=== PATIENT | female | born 1965 | race Caucasian/White ===

== ENCOUNTER 2021-12-18 18:14 | Emergency (ER) | payer BC, SELFPAY ==
[2021-12-18 18:15] VITALS: BP 153/93; PULSE 73; RESP 18; TEMP 35.9; O2SAT 99; BMI 19.7
--- NOTE | 2021-12-18 18:26 | EKG12_ITS ---
Test Reason : NEURO Blood Pressure : / mmHG Vent. Rate : 067 BPM Atrial Rate : 067 BPM P-R Int : 144 ms QRS Dur : 076 ms QT Int : 434 ms P-R-T Axes : 066 056 043 degrees QTc Int : 458 ms Normal sinus rhythm Normal ECG Confirmed by HARPAL RODRIGUEZ, RUBEN ([id number]), loan expeditor JOANIE BELLA ([id number]) on 12/19/2021 11:28:59 AM Referred By: PL Confirmed By:RUBEN ROWAN MD
[2021-12-18 19:16] LABS: Absolute Lymphocyte Count 1.67 X10^3/uL (0.83-4.51); Absolute Neutrophil Count 2.3 X10^3/uL (2.0-7.7); Basophil# 0.02 X10^3/uL; Basophil% 0.4 % (0-1); Eosinophils% 2.1 % (0-5); Hematocrit 36.5 % (37-47); Hemoglobin 12.4 g/dL (12.0-15.0); Lymphocyte # 1.67 X10^3/ul (0.83-4.51); Mean Corpuscular Hgb 33.7 pg (27.0-32.0); Mean Corpuscular Volume 99.2 fL (81-99); Mean Platelet Vol. 11.6 fl (6.2-12.0); Monocyte# 0.64 X10^3/uL; Monocyte% 13.4 % (0-10); NRBC Flagged by Analyzer 0 % (0-5); Neutrophil # 2.33 X10^3/uL (2.7-7.7); Neutrophil % 48.9 % (47-70); Platelet Count 171 K/mm3 (150-450); RBC Distribution Width CV 12.5 % (11.6-14.6); RBC Distribution Width SD 45.1 fl (35.1-43.9); Red Blood Count 3.68 M/mm3 (4.2-5.4); White Blood Count 4.8 K/mm3 (4.4-11.0)
[2021-12-18 19:25] LABS: International Normalized Ratio 1.1; Prothrombin Time (Protime)PT. 13.3 SECONDS (11.7-14.9)
[2021-12-18 19:26] LABS: Partial Thromboplast Time 25.9 Seconds (24.1-36.2)
[2021-12-18 19:30] LABS: Anion Gap 6 (5-15); BUN 13 mg/dL (7-18); BUN/Creat Ratio 16.7 RATIO (10-20); Calcium,Total 9.2 mg/dL (8.5-10.1); Chloride 101 mmol/L (98-107); Creatinine, Serum 0.78 mg/dL (0.55-1.02); EST Glomerular Filtration Rate 81 mL/min (>60); Est Glom Filt Rate - Afr Amer 97 mL/min (>60); Estimated Creatinine Clearance 62.68 ml/min; Glucose 116 mg/dL (74-106); Potassium 4.1 mmol/L (3.5-5.1); Sodium Level 135 mmol/L (136-145)
[2021-12-18 19:50] VITALS: BP 140/91; PULSE 72; RESP 16; O2SAT 100
--- NOTE | 2021-12-18 19:52 | RAD_ITS ---
STUDY: X-RAY CHEST REASON FOR EXAM: Female, 56 years old. Technologist Notes LEFT SIDED FACIAL DROOP, LEFT FACE NUMBNESS, DIZZINESS, VISION CHANGES SINCE SATURDAY. Stroke TECHNIQUE: XR Chest 1 View COMPARISON: None FINDINGS: There is no demonstrated pleural abnormality. Normal size heart. Normal mediastinum and asiya. Normal visualized pulmonary arteries. There is atherosclerotic calcification of the aortic arch with tortuosity. There are diffuse degenerative changes of the visualized thoracic spine. There is degenerative osteoarthritis of the bilateral shoulders. There is no demonstrated abnormality of the visualized soft tissue structures of the upper abdomen. RAD/Chest 1 View (Portable) IMPRESSION: There are no acute findings. Electronically Signed: Mihai Arciniega MD at 20:07 EST ,
[2021-12-18 19:58] VITALS: BP 140/91; PULSE 72; RESP 13; O2SAT 100; BMI 19.7
--- NOTE | 2021-12-18 20:23 | CT_ITS ---
STUDY: CT BRAIN WITHOUT CONTRAST REASON FOR EXAM: Female, 56 years old. left side weakness TECHNIQUE: Transaxial CT imaging of the brain was performed without administration of intravenous contrast material. Individualized dose optimization techniques were used for this CT. COMPARISON: None FINDINGS: Normal calvarium. Normal soft tissues. Normal size ventricles and extra-axial spaces for the patient''s age. Normal white matter tracts of the cerebral hemispheres. Normal basal ganglia and thalami. Normal brainstem. Normal cerebellum. There is no intracranial hemorrhage. There are no findings of an acute ischemic infarction. Normal visualized paranasal sinuses. ASPECTS 10 CT/Brain/Head without Contrast IMPRESSION: There are no acute intracranial findings. Electronically Signed: Mihai Arciniega MD at 20:54 EST ,
--- NOTE | 2021-12-18 20:25 | EX.ED.DYSGE1 ---
HPI History of Present Illness Chief Complaint: Neuro S/Sx Informant: patient Narrative Narrative: Patient presents with concern for stroke. She states Saturday evening she got flashing half-king salmon shaped light in her right vision. It was bright white but sometimes had black and red components to it. She states she could easily draw it. The next day she had some tingling on the left side of her face along with some left facial droop and mild weakness along the left side. She states she intermittently still gets the flashing lights that will last for a brief period of time but is not having them now. The weakness has been getting overall better. She did have a headache the next day but that is also better. She states she had same thing that happened in about 2017 or 18. Ever since then she has gotten the flashing lights occasionally in her vision but normally does not get weakness with it. She does states she has a history of migraines but does not have them frequently. She has never associated these symptoms with her migraines. She has not seen a physician for this. She does have a family history of strokes in her mother and father at relatively young age. But she states she has kept herself healthy. She has no diabetes blood pressure or cholesterol. She has never had heart disease. She is on no medications she does have multiple allergies. PFSH PFS Medical History no medical history Allergy/AdvReac Type Severity Reaction Status Date / Time azithromycin [From Zithromax] Allergy Anaphylaxis Verified 12/18/21 18:19 Penicillins Allergy Anaphylaxis Verified 12/18/21 18:19 Sulfa (Sulfonamide Allergy Anaphylaxis Verified 12/18/21 18:19 Antibiotics) acetaminophen [From Vicodin] AdvReac Other Verified 12/18/21 18:19 hydrocodone [From Vicodin] AdvReac Other Verified 12/18/21 18:19 Family History no significant family his Surgical History no surgical history Social History Smoking Status: Never smoker ROS ROS ED Constitutional Constitutional ED: Denies chills or fever(s) Eyes Eyes: Reports other Details: See history of present illness. ENT ENT ED: Denies rhinorrhea Cardiovascular Cardiovascular: Reports palpitations; Denies chest pain Respiratory/Chest Respiratory/Chest: Denies cough, dyspnea or sputum Gastrointestinal Gastrointestinal: Denies abdominal pain, nausea or vomiting Genitourinary Genitourinary ED: Denies dysuria or hematuria Musculoskeletal Musculoskeletal: Denies arthralgias, myalgias or neck pain Integumentary Denies abscess or rash Neurologic Neurologic: Reports headache(s), paresthesias, weakness and other Details: See history of present illness Psychiatric Psychiatric: Denies anxiety or depression Endocrine Endocrinology: Denies polydipsia or polyuria Allergic/Immunologic Allergic/Immunologic ED: Denies mouth swelling or urticaria EXAM Physical Exam Const Vital Signs: 12/18/21 18:15 12/18/21 19:50 12/18/21 19:58 Temperature 96.7 F L Temperature Source Temporal Pulse Rate 73 72 72 Respiratory Rate 18 16 13 Blood Pressure 153/93 H 140/91 H 140/91 H Blood Pressure Mean 113 107 107 Pulse Ox 99 100 100 Oxygen Delivery Method Room Air Room Air Room Air 12/18/21 21:03 Temperature Temperature Source Pulse Rate 69 Respiratory Rate 19 H Blood Pressure 133/80 H Blood Pressure Mean 97 Pulse Ox 97 Oxygen Delivery Method Room Air Positive well nourished and well developed General Appearance ED: well developed and NAD; Negative for cyanotic HEENT Reports moist mucous membranes Negative for trauma or tenderness Eyes PERRL and EOMs intact bilaterally Eyes Narrative: Normal visual al. No photophobia at this time but she is also not having a headache or the scotoma. Normal range of motion. General Eye ED: Negative for pale conjunctiva or scleral icterus Neck no lymphadenopathy and supple Neck Narrative: No bruit. Chest Wall inspection of chest normal Resp normal respiratory effort and clear to auscultation bilaterally Cardio regular rate, regular rhythm and no murmurs GI normal to inspection, nondistended, normoactive bowel sounds and non-tender Palpation: soft Back/Spine no CVA tenderness General Back: CVA tenderness Extremity normal to inspection General Extremety ED: Negative for edema or tenderness General Extremity: Negative for edema Neuro oriented x3 and CN's II-XII intact bilaterally Neuro Narrative: Patient awake alert and appropriate. There is no facial droop at this time. Range of motion of the eyes are normal. No lid lag. No sign of Swan's palsy. Speech is normal. Cognition is normal. There is no weakness of upper or lower extremities. Coordination is normal. Her NIH is 0. Sensorium / Orientation: alert Psych mental status grossly normal Skin no rashes or lesions noted MDM MDM MDM Narrative Medical decision making narrative: Patient's work-up shows a normal CBC. Normal coags. Electrolytes are overall unremarkable. Troponin is negative. Chest x-ray and CT are normal. EKG shows no acute process. Patient's been having symptoms with visual scotoma occasionally followed by headache occasionally with neurologic symptoms for about 4 to 5 years. Despite this she has negative CT. The symptoms have been going on for [address] is normal. I think this represents complex migraine and not stroke. This is overall healthy person. She is very active and exercises 30 minutes or more a day. She is on a [employer] plant-based diet. She keeps herself thin. She is on no medications. Her family has history of strokes but they were not healthy. I think she is okay for discharge. We will refer her for primary physician follow-up and we discussed the possibility of neurology follow-up also. Lab Data Attestation: I reviewed the patient's lab results. Labs: Laboratory Results - last 24 hr 12/18/21 12/18/21 12/18/21 19:03 19:03 19:03 WBC 4.8 RBC 3.68 L Hgb 12.4 Hct 36.5 L MCV 99.2 H MCH 33.7 H MCHC 34.0 RDW Std Deviation 45.1 H RDW Coeff of Gertrude 12.5 Plt Count 171 MPV 11.6 Immature Gran % (Auto) 0.200 Neut % (Auto) 48.9 Lymph % (Auto) 35.0 Cascade % (Auto) 13.4 H Eos % (Auto) 2.1 Baso % (Auto) 0.4 Absolute Neuts (auto) 2.3 Absolute Lymphs (auto) 1.67 Nucleated RBC % 0 PT 13.3 INR 1.1 APTT 25.9 Sodium 135 L Potassium 4.1 Chloride 101 Carbon Dioxide 28.0 Anion Gap 6 BUN 13 Creatinine 0.78 Estim Creat Clear Calc 62.68 Est GFR (MDRD) Af Amer 97 Est GFR (MDRD) Non-Af 81 BUN/Creatinine Ratio 16.7 Glucose 116 H Calcium 9.2 Troponin I High Sens 12/18/21 19:03 WBC RBC Hgb Hct MCV MCH MCHC RDW Std Deviation RDW Coeff of Gertrude Plt Count MPV Immature Gran % (Auto) Neut % (Auto) Lymph % (Auto) Cascade % (Auto) Eos % (Auto) Baso % (Auto) Absolute Neuts (auto) Absolute Lymphs (auto) Nucleated RBC % PT INR APTT Sodium Potassium Chloride Carbon Dioxide Anion Gap BUN Creatinine Estim Creat Clear Calc Est GFR (MDRD) Af Amer Est GFR (MDRD) Non-Af BUN/Creatinine Ratio Glucose Calcium Troponin I High Sens 5 Radiography Diagnostic Testing: Clinical Impression(s) from Imaging Studies Chest X-Ray 12/18/21 19:52 IMPRESSION: There are no acute findings. Electronically Signed: Mihai Arciniega MD at 20:07 EST , Brain CT 12/18/21 20:23 IMPRESSION: There are no acute intracranial findings. Electronically Signed: Mihai Arciniega MD at 20:54 EST , EKG Initial EKG: Comments: EKG done as part of medical work-up read by me shows normal sinus rhythm with a rate of 67. No ectopy. No acute ST elevation or depression. SC interval, QRS duration and QTc normal. No prior. Discharge Plan Triage Chief Complaint: Neuro S/Sx ED Provider: Robert Jerry Dx/Rx/DC Orders Clinical Impression: Migraine, Visual field scotoma Instructions: ED, Migraine (Classical) Primary Care Provider: Care Physician,No Primary Referrals: Roberto Mckeon MD [STAFF PHYSICIAN] - As soon as possible Care Physician,No Primary [Primary Care Provider] - Disposition Disposition: Home, Self Care
[2021-12-18 20:51] LABS: Troponin-I HS 5 pg/mL (3.0-54.0)
[2021-12-18 21:03] VITALS: BP 133/80; PULSE 69; RESP 19; O2SAT 97
[2021-12-18 22:26] VITALS: BP 124/75; PULSE 70; RESP 15; O2SAT 98
== END 2021-12-18 22:28 | disposition home or self-care (01) ==
PROVIDERS: Emergency Provider Emergency Medicine; Visit Provider Emergency Medicine
DX: G43.909 Migraine, unspecified, not intractable, without status migrainosus (principal); R29.810 Facial weakness
CPT/HCPCS: 70450; 71045; 80048; 84484; 85025; 85610; 85730; 93005; 99283; A4216

== ENCOUNTER 2024-11-17 11:33 | Outpatient (CLI) | payer OTHER, SELFPAY ==
--- NOTE | 2024-11-17 11:36 | RAD_ITS ---
STUDY: X-RAY - RIGHT ANKLE REASON FOR EXAM: Female, 59 years old. Pain. Right ankle and foot pain after sledding injury. Bruising to dorsal foot and lateral ankle. Unable to flex foot. TECHNIQUE: 3 views of the right ankle. COMPARISON: None. FINDINGS: Normal visualized distal tibia and fibula. Normal medial and lateral malleoli. Normal tibiotalar articulation and ankle mortise. Normal visualized talus and calcaneus. The visualized subtalar, talonavicular, calcaneocuboid and tarsal articulations are normal. There is no demonstrated fracture. The soft tissue structures are unremarkable. RAD/Ankle min 3 Views IMPRESSION: Normal x-ray examination of the right ankle. Electronically Signed: Jeff Soernsen MD at 12:17 EST ,
--- NOTE | 2024-11-17 11:36 | RAD_ITS ---
STUDY: X-RAY - RIGHT FOOT CLINICAL: Female, 59 years old. Pain. Right ankle and foot pain after sledding injury. Bruising to dorsal foot and lateral ankle. Unable to flex foot. TECHNIQUE: 3 views of the right foot. COMPARISON: None. FINDINGS: Normal talus, calcaneus, and tarsal bones. Normal visualized subtalar, talonavicular, calcaneocuboid, tarsal and tarsometatarsal articulations. Normal metatarsi. Normal metatarsophalangeal joint of the great toe. Normal tibial and fibular sesamoid bones. Normal interphalangeal joint of the great toe. Normal phalanges of the great toe. Normal second through fifth metatarsophalangeal joints. Normal interphalangeal joints and phalanges of the lesser toes. The soft tissue structures are unremarkable. There is no demonstrated fracture. RAD/Foot min 3 Views IMPRESSION: Unremarkable x-ray examination of the right foot. Electronically Signed: Jeff Sorensen MD at 12:19 EST ,
== END 2024-11-17 23:59 | disposition home or self-care (01) ==
PROVIDERS: PCP Internal Medicine; Referring Provider Physician Assistant; Visit Provider Physician Assistant
DX: M25.571 Pain in right ankle and joints of right foot (principal); M79.671 Pain in right foot
CPT/HCPCS: 73610; 73630